=== PATIENT | female | born 1935 | race Caucasian/White ===

== ENCOUNTER 2019-02-24 17:45 | Emergency (ER) | payer MEDICARE, BC ==
[~2019-02-24] VITALS: Ht 180.3 cm; Wt 74.1 kg
[2019-02-24 18:31] LABS: COLLECTION METHOD CLEAN CATCH
[2019-02-24 18:33] VITALS: TEMP 98.4
[2019-02-24 18:39] LABS: BASO # 0.1 (0.0-0.2); BASO % 0.5 % (0.0-2.0); EOS # 0.1 (0.0-0.7); EOS % 1.4 % (0-4.0); GRAN % 79.4 % (42.2-75.2); HEMATOCRIT 39.4 % (37.0-47.0); HEMOGLOBIN 13.4 g/dl (12.5-16.0); LYMPH # 1.2 (1.2-3.4); LYMPH % 11.5 % (20.0-51.0); MEAN CELL VOLUME 102 fl (80.0-100.0); MEAN CORPUSCULAR HEMOGLOBIN 35 pg (27.0-31.0); MEAN CORPUSCULAR HGB CONC 34 g/dl (33.0-37.0); MEAN PLATELET VOLUME 11.1 fl (7.4-10.4); MONO # 0.7 (0.1-0.6); MONO % 6.7 % (1.7-9.3); PLATELET COUNT 192 K/mm3 (130-400); RED BLOOD COUNT 3.88 M/mm3 (4.10-5.30); REDCELL DISTRIBUTION WIDTH-CV 12.5 % (11.5-14.5)
[2019-02-24 18:43] LABS: PH 5 (5-8); SQUAMOUS EPITHELIAL 0-2 /hpf; URINE APPEARANCE Hazy; URINE BACTERIA None Seen /hpf; URINE BILIRUBIN Negative (NEGATIVE); URINE BLOOD 1+ (NEGATIVE); URINE COLOR Yellow; URINE GLUCOSE Negative (NEGATIVE); URINE KETONE Negative (NEGATIVE); URINE LEUKOCYTE ESTERASE 1+ (NEGATIVE); URINE NITRATE Negative (NEGATIVE); URINE PROTEIN(semi-quant) 1+ (NEGATIVE); URINE UROBILINOGEN Negative (NEGATIVE)
[2019-02-24] MEDS ORDERED: OMNICEF 300MG300 MG PO (18:49)
[2019-02-24 18:50] LABS: ALANINE AMINOTRANSFERASE 13 U/L (9-52); ALKALINE PHOSPHATASE 95 U/L (50-136); ANION GAP 8 mmol/L (7-16); AST,SGOT 30 U/L (15-37); BILIRUBIN,TOTAL 0.8 mg/dL (0.0-1.0); BLOOD UREA NITROGEN 16 mg/dL (7-17); C-REACTIVE PROTEIN 6.4 mg/dL (0.0-0.9); CARBON DIOXIDE 24 mmol/L (22-30); CHLORIDE 104 mmol/L (98-107); CREATININE, serum 0.85 (0.52-1.25); GLUCOSE 130 mg/dL (74-106); POTASSIUM 4.5 mmol/L (3.4-5.0); SODIUM 136 mmol/L (137-145); TOTAL PROTEIN 7.1 gm/dL (6.4-8.2)
[2019-02-24 18:59] LABS: TROPONIN-I < 0.012 ng/mL (0.000-0.035)
[2019-02-24 19:26] LABS: PROTHROMBIN TIME 11.1 SECONDS (9.7-12.8)
[2019-02-24 21:07] VITALS: BP 130/68; PULSE 88
== END 2019-02-24 21:07 | disposition home or self-care (01) ==
LOC: COL.ER 17:45
PROVIDERS: Emergency Medicine
DX: N12 Tubulo-interstitial nephritis, not specified as acute or chronic (principal)
CPT/HCPCS: A4216; J0696; J7030; Q9967

== ENCOUNTER 2024-03-13 09:32 | Inpatient (IN) | payer MEDICARE, BC ==
[~2024-03-13] VITALS: Ht 172.7 cm; Wt 73.4 kg
[~2024-03-13 09:32] MED LIST: ASPI325T6 PO; MOBIC15 MG PO; MULTI VITAMINS1 TAB PO; OMNICEF 300MG300 MG PO; OSCAL 500 TAB500 MG PO; RESTORIL 1515 MG/CAP PO; ROXICODONE 55 MG/TAB PO; TYLENOL 500MG500 MG PO; VITAMIN C500 MG PO
[2024-03-13] MEDS ORDERED: Docusate Sodium 100 MG CAP PO PRN (10:00)
[2024-03-13] MEDS ORDERED: Acetaminophen 325 MG TAB PO PRN (10:00)
[2024-03-13] MEDS ORDERED: Naloxone 0.4 MG/ML VIAL IV PRN (10:00)
[2024-03-13] MEDS ORDERED: Sennosides/Docusate 8.6-50 MG TAB PO PRN (10:00)
[2024-03-13] MEDS ORDERED: Polyethylene Glycol 3350 17 GM PDS PO PRN (10:00)
--- NOTE | 2024-03-13 10:22 | NUR ---
PATIENT TO [facility], ROOM 340. THERAPY WORKING WITH PATIENT.
[2024-03-13] MEDS ORDERED: RESTORIL 1515 MG/CAP PO (12:12)
[2024-03-13] MEDS ORDERED: oxyCODONE 5 MG TAB PO PRN (12:15)
[2024-03-13] MEDS ORDERED: Acetaminophen 500 MG TAB PO PRN (12:15)
[2024-03-13 17:36] VITALS: BP 124/65; PULSE 88; TEMP 97.8
--- NOTE | 2024-03-13 19:04 | NUR ---
PT SITTING IN CHAIR AT THIS TIME. AMBULATED TO BATHROOM AND URINATED PALE YELLOW URINE. PT IS BACK IN CHAIR. IS CURRENTLY AT BEDSIDE. PT HAS FOOD IN ROOM AND IS EATING. NO COMPLAINTS AT THIS TIME. CALL LIGHT IS WITHIN REACH.
[2024-03-13 19:06] VITALS: BP_SYST 124
[2024-03-13] MEDS ORDERED: Temazepam 15 MG CAP PO SCH (21:00)
--- NOTE | 2024-03-13 21:49 | NUR ---
PT IS LAYING IN BED. ASSESSMENT WAS COMPLETED EARLIER. MEDICATIONS WERE ADMINISTERED PER EMAR. PT HAS NO COMPLAINTS AT THIS TIME. CALL LIGHT IS WITHIN REACH. PT WAS AT BEDSIDE BUT HAS NOW LEFT. PT HAS BEEN UP TO BATHROOM X2. PT HAS A SMALL SOFTLY FORMED BOWEL MOVEMENT. SCD'S ARE APPLIED TO BOTH LEGS.
[2024-03-14 06:04] VITALS: BP 146/79; PULSE 80; TEMP 98.3
[2024-03-14] MEDS ORDERED: Ascorbic Acid 500 MG TAB PO SCH (09:00)
[2024-03-14] MEDS ORDERED: Calcium Carbonate 500 MG TAB PO SCH (09:00)
--- NOTE | 2024-03-14 09:15 | NUR ---
PATIENT ALERT AND ORIENTED X4. VSS. PATIENT HERE FOR RIGHT HIP FRACTURE. GAUZE/TEGADERM TO RIGHT HIP CDI. PATIENT DENIES ANY PAIN THIS AM. AM MEDS ADMINISTERED. PATIENT TOLERATING PO, WAITING ON THERAPY. NO FURTHER NEEDS. CALL LIGHT IN REACH. CHAIR ALARM ON.
[2024-03-14] MEDS ORDERED: Multivitamin TAB PO SCH (12:00)
--- NOTE | 2024-03-14 15:12 | NUR ---
Social work student and DHIRAJ Carnes met with patient this afternoon. Pt lives in [place] with her Mehul (home p# [phone], cell p# [phone]). PCP is Dr. Altamirano and pharmacy is [facility]. Pt is independent with ADLS and uses a cane for DME only when necessary. Pt has a DPOA-HC that lists her Mehul as primary, son Derek (p# [phone]) as secondary, and daughter in-law Abrahan (p# [phone]) as third agent. The DPOA-HC also lists the Pt's sister in-law as a forth agent but patient expressed taking her off as "shes older." DHIRAJ Carnes planned a family meeting on 2023 at either 9:30am or 1pm. Pt leaned more towards 1pm as her is "slow moving" in the morning. DHIRAJ Carnes discussed discharge plan with Pt. Pt expressed interest in outpatient PT as she would like to attend activites and not be "home bound" with home health. Pt expressed interest in [facility] and having [facility] conduct a home visit to evaluate additional needs in the home. DHIRAJ Terryy contacted [facility] about the home visit. [facility] expressed they offer outpatient PT. [facility]. Discharge Plan: Home with outpatient PT or HH (pending Pt's choice and referrals)
--- NOTE | 2024-03-14 16:14 | NUR ---
human services worker emailed patient's son, Derek, [email or web address], to determine if he would be able to participate via telephone for the family meeting.
[2024-03-14 18:00] VITALS: BP 135/68; PULSE 83; TEMP 97.9
[2024-03-14 19:00] VITALS: BP_SYST 135
[2024-03-14] MEDS ORDERED: Temazepam 15 MG CAP PO SCH (21:00)
--- NOTE | 2024-03-14 21:53 | NUR ---
AZ UP IN CHAIR. AT THE BEDSIDE. PT IN NO SIGN OF DISTRESS ATH THIS TIME.
[2024-03-14] MEDS ORDERED: Temazepam 15 MG CAP PO PRN (22:00)
[2024-03-15 05:37] VITALS: BP 137/76; PULSE 65; TEMP 97.6
--- NOTE | 2024-03-15 07:30 | NUR ---
PT A&OX4. VSS. NO C/O PAIN AT THIS TIME. UP IN RECLINER EATING BREAKFAST. PT IS UP W/ SBA W/ WALKER. SHIFT ASSESSMENT COMPLETE AND MEDICATIONS ADMINISTERED. NO FURTHER NEEDS AT THIS TIME. CALL LIGHT WITHIN REACH. CHAIR ALARM ON.
[2024-03-15 07:33] VITALS: BP_SYST 133
--- NOTE | 2024-03-15 12:32 | NUR ---
life skills worker secure emailed walker order to [facility]. DHIRAJ scheduled family meeting for tomorrow at 1 pm. Derek, son, would like to be present via telephone P# [phone]. DHIRAJ contacted [facility] to determine if they would do a home assessment per patient's request yesterday. They reported they could but it would be a $180 fee for a one time visit which is not covered by insurance. DHIRAJ will provide this update to patient tomorrow during family meeting. Discharge plan: Home with either home health or OP PT
--- NOTE | 2024-03-15 14:19 | NUR ---
community placement worker attempted to meet with patient to update her on the time of the family meeting but patient was sound asleep. Discharge plan: Home with Home health or OP PT- March 20
[2024-03-15 17:50] VITALS: BP 127/80; PULSE 88; TEMP 98.2
[2024-03-15 19:00] VITALS: BP_SYST 127
--- NOTE | 2024-03-15 19:00 | NUR ---
RECEIVED CHANGE OF SHIFT REPORT FROM DAY SHIFT NURSE.
--- NOTE | 2024-03-15 21:47 | NUR ---
REQUESTED AND GIVEN PAIN MEDS, SEE MAR.
[2024-03-16 06:14] LABS: BASO % 0.5 % (0.0-2.0); EOS # 0.5 K/mm3 (0.0-0.7); EOS % 6.1 % (0.0-4.0); GRAN # 3.4 K/mm3 (1.4-6.5); LYMPH # 2.8 K/mm3 (1.2-3.4); LYMPH % 35.9 % (20.0-51.0); MEAN CELL VOLUME 99 fl (80.0-100.0); MEAN CORPUSCULAR HEMOGLOBIN 35 pg (27-31); MEAN CORPUSCULAR HGB CONC 35 g/dl (33.0-37.0); MEAN PLATELET VOLUME 11.3 fl (7.4-10.4); MONO # 1.1 K/mm3 (0.1-0.6); MONO % 13.7 % (1.7-9.3); PLATELET COUNT 199 K/mm3 (130-400); RED BLOOD COUNT 3.18 M/mm3 (4.10-5.30); REDCELL DISTRIBUTION WIDTH-CV 13.2 % (11.5-14.5)
[2024-03-16 06:16] LABS: HEMATOCRIT 31.6 % (37.0-47.0)
[2024-03-16 06:35] LABS: CALCIUM 8.4 mg/dL (8.4-10.2); CREATININE, serum 0.76 mg/dL (0.57-1.11); POTASSIUM 4.2 mEq/L (3.5-4.5)
[2024-03-16 07:00] VITALS: BP_SYST 153
[2024-03-16 07:20] VITALS: BP 153/90; PULSE 74; TEMP 97.3
--- NOTE | 2024-03-16 07:39 | NUR ---
CHANGE OF SHIFT REPORT GIVEN TO DAY SHIFT NURSE, BHARGAV AND ORIENTEE NURSE.
--- NOTE | 2024-03-16 10:29 | NUR ---
PATIENT ALERT AND ORIENTED X4. VSS. PATIENT HERE FOR RIGHT HIP FRACTURE. DRESSING CDI WITH GAUZE/TEGADERM. PATIENT REPORTS MILD PAIN THIS AM, DENIES NEED FOR PRN PAIN MEDICATION. AM MEDS ADMINISTERED. PATIENT SITTING UP TO CHAIR, WAITING ON THERAPY. NO FURTHER NEEDS. CALL LIGHT IN REACH. CHAIR ALARM ON.
--- NOTE | 2024-03-16 13:57 | NUR ---
Admission QIM scores were reviewed by the team. Code of 88 chosen for shower/bathe self was determined by team discussion to be the most usual performance before interventions for this patient during the assessment period. Code of 3 chosen for lower body dressing was determined by team discussion to be the most usual performance before interventions for this patient during the assessment period. Code of 3 chosen for putting on/taking off footwear was determined by team discussion to be the most usual performance before interventions for this patient during the assessment period. Code of 4 chosen for sit to lying was determined by team discussion to be the most usual performance before interventions for this patient during the assessment period. Code of 4 chosen for sit to stand was determined by team discussion to be the most usual performance for this patient during the discharge assessment period.--Migdalia Osborne, PD
--- NOTE | 2024-03-16 15:51 | NUR ---
lead supply worker attended family meeting with patient, patient's and IPR team. Patient is scheduled to discharge on March 20. Patient expressed she would like [facility] to start then would move towards OP PT afterwards. Patient's son was on the phone during this conversation and wanted to speak with the 7th grade social studies teacher privately. Derek, son, asked if it would be recommended that he come stay with his mom upon discharge. SW explained he was welcome to come stay with her but it would not be a requirement. DHIRAJ explained if patient were to get home and need more rehab in a facility she could go to the [facility] on campus. SW explained if the team felt patient needed 24/7 care they would recommend SNF upon discharge vs home health so the team feels comfortable with her going home with home health. Derek understood. SW notified Derek and patient that the walker has been ordered at [facility] and should be delivered before her discharge. Patient reported she ordered the bedside commode and shower chair. SW faxed home health referral to [facility]. Discharge plan: Home with home health - [facility]
[2024-03-16 17:02] VITALS: BP 130/82; PULSE 88; TEMP 98.2
[2024-03-16 19:00] VITALS: BP_SYST 130
--- NOTE | 2024-03-16 19:00 | NUR ---
RECEIVED CHANGE OF SHIFT REPORT FROM DAY SHIFT. PATIENT UP IN CHAIR EATING EVENING MEAL, SPOUSE IN ROOM. CHAIR EXIT ALARM ON, CALL LIGHT IN REACH. NO NEEDS REPORTED A TIME OF REPORT.
[2024-03-16] MEDS ORDERED: Temazepam 15 MG CAP PO SCH (22:00)
[2024-03-17 05:07] VITALS: BP 154/81; PULSE 73; TEMP 97.8
--- NOTE | 2024-03-17 07:03 | NUR ---
CHANGE OF SHIFT REPORT GIVEN TO DAY SHIFT NURSEBONNIE.
[2024-03-17 07:12] VITALS: BP_SYST 154
--- NOTE | 2024-03-17 10:21 | NUR ---
PT SITTING UP IN CHAIR, ALERT AND ORIENTEDX4. ASSESSED PT. RATES PAIN 2/10 IN THE RIGHT HIP AND REQUESTED TYLENOL. GAVE PT MORNING MEDS. DRESSING ON RIGHT HIP IS CLEAN DRY INTACT. NO OTHER COMPLAINTS AT THIS TIME. CALL LIGHT WITHIN REACH.
[2024-03-17 17:19] VITALS: BP 153/80; PULSE 73; TEMP 97.7
[2024-03-17 21:59] VITALS: BP_SYST 153
--- NOTE | 2024-03-18 00:39 | NUR ---
PT IS IN BED AT THIS TIME. NO COMPLAINTS. CALL LIGHT IS WITHIN REACH
--- NOTE | 2024-03-18 01:40 | NUR ---
Patient care, medication administration and nursing documentation occurred during a Daylight Savings Time Change.
[2024-03-18 06:00] VITALS: BP 123/73; PULSE 81; TEMP 97.7
[2024-03-18 06:44] VITALS: BP_SYST 123
--- NOTE | 2024-03-18 09:06 | NUR ---
PT RESTING IN CHAIR, ALERT AND ORIENTEDX4. ASSESSED PT. RATES PAIN 1/10 IN THE RIGHT HIP. DRESSING IN CLEAN DRY INTACT. PT SAYS IT HURTS HER HIP TO MUCH TO SLEEP IN THE BED. GAVE MORNING MEDS. NO OTHER COMPLAINTS AT THIS TIME. CALL LIGHT WITHIN REACH.
[2024-03-18 16:50] VITALS: BP 121/76; PULSE 90; TEMP 97.7
[2024-03-18 19:47] VITALS: BP_SYST 121
--- NOTE | 2024-03-18 19:51 | NUR ---
RECEIVED CHANGE OF SHIFT REPORT FROM DAY SHIFT NURSE.
--- NOTE | 2024-03-18 20:00 | NUR ---
PATIENT REPORTS UNABLE TO LAY IN BED COMFORTABLY. OFFERED PATIENT TO HAVE WAFFLE AIR MATTRESS OVERLAY PLACED ON BED, PATIENT AGREED TO TRY AIR MATTRESS ON BED. REQUESTS PAIN MED WITH HS MEDS. AT BEDSIDE, ICE PACK TO RIGHT HIP SURGICAL SITE. EXIT ALARM ON WHEN IN BED, CALL LIGHT IN REACH.
[2024-03-19 06:00] VITALS: BP 124/70; PULSE 71; TEMP 97.4
[2024-03-19 07:00] VITALS: BP_SYST 124
--- NOTE | 2024-03-19 07:09 | NUR ---
CHANGE OF SHIFT REPORT GIVEN TO DAY SHIFT NURSE
--- NOTE | 2024-03-19 09:14 | NUR ---
PATIENT ALERT AND ORIENTED X4. VSS. PATIENT HERE FOR RIGHT HIP FX. DRESSING TO RIGHT HIP, CDI WITH GAUZE/TEGADERM. AM MEDS ADMINISTERED ALONG WITH PRN PAIN MEDICATION FOR PATIENT RATING SALMA 2. NO FURTHER NEEDS. CALL LIGHT IN REACH. CHAIR ALARM ON.
--- NOTE | 2024-03-19 14:10 | NUR ---
The Interdisciplinary team discussed making the patient Independent in her room during Team Huddle. Her current Humphries Fall Score is moderate at 40 as nursing documented & Tinetti is low at 21. She has been using a walker for mobility & self care & demonstrates good safety awareness. The team feels she is capable of being Modified Independent in her room at this time as she is aware of her deficits/limitations & cognitively able to problem solve her situations.--Migdalia Osborne, PD
--- NOTE | 2024-03-19 16:48 | NUR ---
Billing Coordinator met with patient to present and review IM. Patient verbalized understanding and provided signature. SW placed form in chart and provided copy to patient. DHIRAJ contacted Nicholas at [facility] and faxed updates. Nicholas advised they will accept. DHIRAJ also contacted [facility] to confirm they will deliver patient's walker tomorrow.
[2024-03-19 18:26] VITALS: BP 130/77; PULSE 83; TEMP 96.5
[2024-03-19 20:00] VITALS: TEMP 98.4
[2024-03-19 20:30] VITALS: BP_SYST 130
--- NOTE | 2024-03-19 20:45 | NUR ---
UPON SHIFT ASSESSMENT, PATIENT WAS IN BEDSIDE RECLINER AWAKE A&O X4 AND VERY CHEERFUL. RLE PULSES, COLOR AND SENSATION GOOD. SURGICAL SITE DRESSING IS CDI AND PATIENT RATES PAIN 4/10. VITAL SIGNS ARE WNL. AMBULATED USING WALKER INDEPENDENTLY WITH GOOD EFFORT. SHE WALKED DOWN THE DOSS TO VISIT WITH HER FRIEND WHO IS ALSO A PATIENT OF IPR. MARIBELL EAGERLY AWAITS DISCHARGE TOMORROW.
[2024-03-20 04:52] VITALS: BP 121/74; PULSE 76; TEMP 97.5
[2024-03-20 07:00] VITALS: BP_SYST 121
[2024-03-20] MEDS ORDERED: VITAMIN C500 MG PO (08:46)
[2024-03-20] MEDS ORDERED: ROXICODONE 55 MG/TAB PO (08:46)
[2024-03-20] MEDS ORDERED: OSCAL 500 TAB500 MG PO (08:46)
[2024-03-20] MEDS ORDERED: MULTI VITAMINS1 TAB PO (08:46)
[2024-03-20] MEDS ORDERED: ASPI325T6 PO (08:46)
--- NOTE | 2024-03-20 09:00 | NUR ---
PT A&OX4. VSS. NO C.O. PAIN AT THIS TIME. PLANNING TO DISCHARGE HOME TODAY W/ HH. SHIFT ASSESSMENT COMPLETE AND MEDICATIONS ADMINISTERED. PT IS MODIFIED INDEPENDENT IN ROOM. PT SLOWLY PACKING UP PERSONAL BELONGING TOLERATED. NO FURTHER NEEDS AT THIS TIME. HIP PRECAUTIONS IN PLACE AND PT FOLLOWS WELL.
--- NOTE | 2024-03-20 11:06 | NUR ---
WENT OVER DISCHARGE INSTRUCTIONS W/ PT. ON WAY TO TAKE PT HOME. PT VERBALIZES UNDERSTANDING OF TEACHING. ABLE TO ANSWER ALL OF PT'S QUESTIONS. AIDE HELPING PT AND PACK UP BELONGINGS.
--- NOTE | 2024-03-20 11:23 | NUR ---
personal belongings taken down with pt and by aide and nurse. helped pt into pov where driving her home.
--- NOTE | 2024-03-20 13:44 | NUR ---
Carrier Associate contacted Nicholas at [facility] and faxed discharge orders.
== END 2024-03-20 11:24 | disposition home health service (06) | DRG 561 ==
PROVIDERS: ADMIT Physical Medicine & Rehabilitation Sports Medicine
DX: S72.011D Unspecified intracapsular fracture of right femur, subsequent encounter for closed fracture with routine healing (principal); I95.9 Hypotension, unspecified; R19.7 Diarrhea, unspecified; D53.9 Nutritional anemia, unspecified; R53.81 Other malaise; R26.89 Other abnormalities of gait and mobility; G47.00 Insomnia, unspecified; R35.0 Frequency of micturition; G89.11 Acute pain due to trauma; W19.XXXD Unspecified fall, subsequent encounter; Z79.82 Long term (current) use of aspirin; Z79.891 Long term (current) use of opiate analgesic; Z79.899 Other long term (current) drug therapy; Z74.09 Other reduced mobility